=== PATIENT | male | born 2000 | race Caucasian/White ===

== ENCOUNTER 2021-02-17 00:55 | Emergency (ER) | payer BC ==
--- NOTE | 2021-02-17 01:19 | EDM.PDOC ---
ED HPI GENERAL MEDICAL PROBLEM - General Chief Complaint: Respiratory Problem Stated Complaint: SOB Time Seen by Provider: 02/17/21 01:09 - History of Present Illness INITIAL COMMENTS - FREE TEXT/NARRATIVE: HISTORY AND PHYSICAL: History of present illness: This is a 20-year-old healthy gentleman who presents ER today complaining of shortness of breath for several weeks. Patient denies any recent fevers, shakes, chills, nausea, vomiting, diarrhea, dysuria, frequency, urgency, chest pain abdominal pain. Patient reports that he said about a 50 pound weight loss in the last 6 months try to lose weight by changing his diet. Patient reports that he vapes and occasionally smokes marijuana but no alcohol or drugs. Patient has no known drug allergies. Patient denies any history of hypertension, diabetes, liver, lung, kidney problems. Patient denies any prior abdominal or chest surgeries in the past. Patient reports he is tolerating p.o. solids and liquids well. Patient denies any melena or bright red blood per rect um. Patient has any cough cold or rhinorrhea. Review of systems: As per history of present illness and below otherwise all systems reviewed and negative. Past medical history: As per history of present illness and as reviewed below otherwise noncontributory. Surgical history: As per history of present illness and as reviewed below otherwise noncontributory. Social history: No reported history of drug abuse. Family history: As per history of present illness and as reviewed below otherwise noncontributory. Physical exam: This patient was seen and evaluated during the 2019 SARS-CoV-2 novel coronavirus pandemic period. Community viral transmission is ongoing at time of this encounter and the emergency department is operating under pandemic response procedures. Constitutional: Patient is oriented to person, place, and time. Appears well- developed and well-nourished. No distress. HEENT: Moist mucous membranes Head: Normocephalic and atraumatic Eyes: Right eye exhibits no discharge. Left eye exhibits no discharge. No scleral icterus Neck: Normal range of motion. No tracheal deviation present. Cardiovascular: Normal rate and regular rhythm. Pulmonary: Effort normal, no respiratory distress. No wheezing rales or rhonchi Abdominal: No distention Musculoskeletal: Normal range of motion Neurologic: Alert and oriented to person, place and time. Skin: [place], warm and dry. Psychiatric: Normal mood and affect. Behavior is normal. Judgment and thought content normal. Nursing note and vital signs have been reviewed Pulse ox 96% to 99% on room air Diagnostics: Chest Xray: Normal cardiac silhouette No infiltrates or effusions identified. No PTX No evidence of acute bony fracture. Significant scoliosis identified on the x-ray As interpreted by ER MD: Kayleen Bundy: [] Assessment and plan: 20-year-old gentleman who presents ER today requesting evaluation for shortness of breath for several weeks. Patient is clinically hemodynamically stable here in the ED. Patient's vital signs are all within normal limits. Patient's chest x-ray is normal. Patient appears well and in no respiratory distress or increased effort of breathing. At this time, patient does not meet criteria for inpatient or observation level of care. Patient will be cleared medically with instructions to follow-up with his primary care physician for further evaluation and complete routine physical exam. Patient's x-ray does show significant amount of scoliosis. I have discussed with the patient and have instructed on the need to be referred by his primary care physician to see a epoxy specialist for evaluation and possible options for treatment. Reassessment at the time of disposition demonstrates that the patient is in no acute distress. The patient has remained stable throughout the entire ED visit and is without objective evidence for acute process requiring urgent intervention or hospitalization. The patient is stable for discharge, counseling is provided as documented above, discussed symptomatic treatment and specific conditions for return. I have spoken with the patient/caregiver and discussed todays findings, in addition to providing specific details for the plan of care. Questions are answered and there is agreement with the plan. Definitive disposition and diagnosis as appropriate pending reevaluation and review of above. - Related Data Allergies Allergy/AdvReac Type Severity Reaction Status Date / Time No Known Allergies Allergy Verified 02/17/21 01:12 Home Meds: Home Meds . [No Known Home Meds] 02/17/21 [History] Past Medical History - Past Health History Medical/Surgical History: Denies Medical/Surgical History Social & Family History - Recreational Drug Use Recreational Drug Use: Yes Drug Use in Last 12 Months: Yes Recreational Drug Type: Reports: Marijuana/Hashish Recreational Drug Use Frequency: Socially ED ROS GENERAL - Review of Systems Review Of Systems: See Below ED EXAM, GENERAL - Physical Exam Exam: See Below Course - Vital Signs Last Recorded V/S: Last Vital Signs Temp 97.9 F 02/17/21 01:08 Pulse 87 02/17/21 01:08 Resp 16 02/17/21 01:08 BP 142/93 H 02/17/21 01:08 Pulse Ox 96 02/17/21 01:08 - Orders/Labs/Meds Orders: Active Orders 24 hr Category Date Time Status Chest 1V Frontal [CR] Stat Exams 02/17/21 01:14 Taken Departure - Departure Time of Disposition: 01:18 Disposition: Home, Self-Care 01 Condition: Good Clinical Impression: Vapes nicotine containing substance, Scoliosis Dyspnea Qualifiers: Dyspnea type: unspecified Qualified Code(s): R06.00 - Dyspnea, unspecified - Discharge Information Instructions: Shortness of Breath, Adult, Smokeless Tobacco Information, Adult, Scoliosis Referrals: PCP,None [Primary Care Provider] - Forms: ED Department Discharge Additional Instructions: Your seen and evaluated in the ER today secondary to concerns of shortness of breath. Your chest x-ray is within normal limits. Your vital signs are all normal. Your oxygen level is excellent. Please make an appointment to see your family doctor this week for reevaluation. At this time, we are not identifying any serious condition to cause your current symptoms. Please stop vaping as this can irritate your lungs and give you some of the symptoms that you are concerned about. Your chest x-ray does show that you do have a significant amount of scoliosis in your spine. You will need to follow-up with one of the primary care doctors so they can assist you with a referral to see a epoxy specialist. This is likely not the cause of the symptoms that you are having today but is an incidental finding. Please take a copy of the picture on her phone that I took for you of your x-ray to your appointment. The following information is given to patients seen in the emergency department who are being discharged to home. This information is to outline your options for follow-up care. We provide all patients seen in our emergency department with a follow-up referral. The need for follow-up, as well as the timing and circumstances, are variable depending upon the specifics of your emergency department visit. If you don't have a primary care physician on staff, we will provide you with a referral. We always advise you to contact your personal physician following an emergency department visit to inform them of the circumstance of the visit and for follow-up with them and/or the need for any referrals to a consulting specialist. The emergency department will also refer you to a specialist when appropriate. This referral assures that you have the opportunity for follow-up care with a specialist. All of these measure are taken in an effort to provide you with optimal care, which includes your follow-up. Under all circumstances we always encourage you to contact your private physician who remains a resource for coordinating your care. When calling for follow-up care, please make the office aware that this follow-up is from your recent emergency room visit. If for any reason you are refused follow-up, please contact the [facility] Emergency Department at and asked to speak to the emergency department charge nurse. [facility] [address] [place] [address] [address] Sepsis Event Note (ED) - Evaluation Sepsis Screening Result: No Definite Risk - Focused Exam Vital Signs: Vital Signs Temp Pulse Resp BP Pulse Ox 02/17/21 01:08 97.9 F 87 16 142/93 H 96 - My Orders Last 24 Hours: My Active Orders 02/17/21 01:14 Chest 1V Frontal [CR] Stat - Assessment/Plan Last 24 Hours: My Active Orders 02/17/21 01:14 Chest 1V Frontal [CR] Stat
--- NOTE | 2021-02-17 02:15 | CR ---
INDICATION: Shortness of breath TECHNIQUE: Chest 1 view. COMPARISON: None FINDINGS: The heart is normal in size. The pulmonary vasculature is within normal limits. There is scoliotic curvature of the spine. The lungs are clear. IMPRESSION: No acute process. Dictated by Jia Gallego MD @ 02/17/2021 2:12:[address] Jia Gallego @ Feb 17 2021 2:12AM
== END 2021-02-17 01:58 | disposition home or self-care (01) ==
LOC: MW.ED 00:55
DX: R06.02 Shortness of breath (principal); M41.9 Scoliosis, unspecified; F17.290 Nicotine dependence, other tobacco product, uncomplicated
CPT/HCPCS: 71045; 71045-26; 99283; 99284-25

== ENCOUNTER 2024-11-05 22:41 | Emergency (ER) | payer SELFPAY ==
[2024-11-05] MEDS: Ibuprofen 600 MG Tab PO ONE (23:36)
[2024-11-05] MEDS: Acetaminophen 325 MG Tab PO ONE (23:37)
[2024-11-06] MEDS: Azithromycin 250 MG Tab PO STA (00:20)
== END 2024-11-06 00:30 | disposition home or self-care (01) ==
LOC: MW.ED 22:41
DX: J06.9 Acute upper respiratory infection, unspecified (principal)
CPT/HCPCS: 87428; 87651; 93005; 99283; A9270

== ENCOUNTER 2025-01-15 10:42 | Day surgery (SDC) | payer OTHER ==
[~2025-01-15 10:42] MED LIST: Sodium Chloride 0.9% 10 ML Syringe FLUSH PRN; Sodium Chloride 0.9% 2.5 ML Syringe FLUSH PRN; Sodium Chloride 0.9% 20 ML SDV IV PRN
[2025-01-15] MEDS: Lactated Ringers 1,000 ML IV SCH (11:16)
[2025-01-15] MEDS ORDERED: propofoL 500 MG/50 ML 50 ML ONE (11:16)
[2025-01-15] MEDS ORDERED: Lidocaine 2% 5 ML SDV ONE (11:16)
[2025-01-15] MEDS ORDERED: Midazolam 1 MG/ML 2 ML SDV ONE (11:41)
[2025-01-15] MEDS ORDERED: Propofol 200 MG/20 ML SDV ONE (12:12)
== END 2025-01-15 12:56 | disposition home or self-care (01) ==
LOC: MW.SDS 10:42
PROVIDERS: ATTEND Surgery
DX: Z12.11 Encounter for screening for malignant neoplasm of colon (principal); Z80.0 Family history of malignant neoplasm of digestive organs; F41.9 Anxiety disorder, unspecified; F17.290 Nicotine dependence, other tobacco product, uncomplicated
CPT/HCPCS: 45378; J2003; J2704; J7120; J2250